=== PATIENT | female | born 1930 | race Caucasian/White ===

== ENCOUNTER 2016-08-21 16:50 | Observation (INO) | payer MEDICARE, OTHER ==
[2016-08-21 18:15] LABS: Hematocrit 35.3 % (37.0-47.0); Hemoglobin 11.5 gm/dL (12.5-16.0); Mean Cell Volume 85.9 fl (78-100); Mean Corpuscular Hgb Conc 32.6 g/dl (32-36); Mean Platelet Volume 10.6 fl (6.0-9.5); Neutrophil # 13.4 K/mm3 (1.3-6.0); Neutrophil % 81.9 % (42-75.0); Platelet Count 213 K/mm3 (150-450); Red Blood Count 4.11 M/mm3 (4.2-5.4); Red Cell Distribution Width 14.2 % (11.5-14.0); White Blood Count 16.4 K/mm3 (4.0-10.5)
--- OUTSIDE RECORDS SUMMARY | 2016-08-21 18:15 | XMS REPORT | Continuity of Care Document ---
:1930 Author Organization [facility] ([facility]) Address [address] [place] [address] Phone [phone] Care Team Providers Name Role Phone Laz Mccormack Primary Care Provider [phone] Source Comments This disclosure is being made pursuant to the Care Everywhere program, applicable federal and state laws, and may not contain all informaitonavailable regarding this patient.[facility] ([facility]) Active Allergies and Adverse Reactions No Known Allergies Current Medications Prescription Sig. Disp. Refills Start Date End Date Status ferrous sulfate (IRON) 325 Take 325 mg by Active mg (65 mg iron) tablet mouth 2 times daily. folic acid 5 mg capsule Take 5 mg by mouth Active daily. VITAMIN B COMPLEX PO Take 1 Tab by Active mouth daily. simvastatin 40 mg tablet Take 40 mg by Active mouth every evening. ramipril 5 mg capsule Take 5 mg by mouth Active daily. CALCIUM CARBONATE/VITAMIN 1 Tab daily. Active D3 (VITAMIN D-3 PO) metFORMIN (GLUMETZA) 500 Take 500 mg by Active mg XR tablet mouth daily. 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 03/26/2014 HTN (hypertension) 03/26/2014 Hyperlipidemia 03/26/2014 Obese 03/26/2014 Colon cancer 11/12/2013 Social History Tobacco Use Types Packs/Day Years Used Date Never Smoker Smokeless Tobacco: Never Used Last Filed Vital Signs Vital Sign Reading Time Taken Blood Pressure 194/86 03/31/2015 1:19 PM DE ICER FINISHER Pulse 75 03/31/2015 1:19 PM DE ICER FINISHER Temperature 35.8 C (96.4 F) 03/31/2015 1:19 PM DE ICER FINISHER Respiratory Rate 16 04/15/2014 12:46 PM DE ICER FINISHER Height 1.499 m (4' 11.02") 03/26/2014 10:53 AM DE ICER FINISHER Weight 77.656 kg (171 lb 3.2 oz) 03/31/2015 1:19 PM DE ICER FINISHER Body Mass Index 34.56 03/31/2015 1:19 PM DE ICER FINISHER Oxygen Saturation 96% 03/31/2015 1:19 PM DE ICER FINISHER Plan of Care Health Maintenance Due Date Last Done Comments Hepatitis B Vaccine (1 of 3 - Primary Series) 1930 Tdap Vaccine 1941 DIABETIC: Cholesterol 1948 Diabetic: Hdl 1948 DIABETIC: Hemoglobin A1C 1948 Diabetic: Ldl 1948 DIABETIC: Microalbumin 1948 DIABETIC: Triglycerides 1948 Td Vaccine 1948 Zoster Vaccine 1990 Pneumococcal Vaccine (1 of 2 - PCV13) 1995 DIABETIC: Foot Exam 03/26/2014 DIABETIC: Retinal Eye Exam 03/26/2014 Influenza Vaccine: Seasonal (#1) 12/01/2015 Results from Last 3 Months Not on file
--- NOTE | 2016-08-21 18:16 | ERNOTE ---
Trauma/Assault HPI - Narrative Date of Service: 08/21/16 - General Stated Complaint: FALL Time Seen by Provider: 08/21/16 17:53 Source: patient, family - Daughter Exam Limitations: no limitations, other - Taken into consideration Hx of Dementia - Immun/Allergies/Home Medications Immunizations: IMMUNIZATION HX Immunizations Up to Date Yes History of Influenza Vaccine Yes Hx Pneumococcal Vaccination No Allergies/Adverse Reactions: Allergies No Known Allergies Allergy (Verified 08/21/16 17:32) Home Medications: HOME MEDICATIONS Cyanocobalamin (Vitamin B-12) [Vitamin B-12] 2,000 mcg PO DAILY 11/30/13 [Last Taken Unknown] Ferrous Sulfate 325 mg PO BID 11/30/13 [Last Taken Unknown] Folic Acid 5 mg PO DAILY 11/30/13 [Last Taken Unknown] Simvastatin [Zocor] 40 mg PO DAILY 11/30/13 [Last Taken Unknown] Vitamin E 1,000 unit PO DAILY 11/30/13 [Last Taken Unknown] Aspirin [Aspirin Enteric Coated] 81 mg PO DAILY 08/21/16 [Last Taken Unknown] Cholecalciferol (Vitamin D3) [Vitamin D3] 1,000 unit PO DAILY 08/21/16 [Last Taken Unknown] Insulin Glargine,Hum.rec.anlog [Lantus] 30 units SQ HS 08/21/16 [Last Taken Unknown] Insulin Glargine,Hum.rec.anlog [Lantus] 35 units SQ AC 08/21/16 [Last Taken Unknown] Lisinopril [Zestril] 10 mg PO BID 08/21/16 [Last Taken Unknown] metFORMIN HCL [Metformin HCl ER] 500 mg PO BID 08/21/16 [Last Taken Unknown] - History of Present Illness Date (Duration): 08/21/16 Time (Timing): 16:30 Narrative: Patient comes after having an event of LOC. Patient had bladder sphincter loss and is complaining of L shoulder pain. Daughter reported that this has happened to patient before in two different events. Location Occurred: Reports: home Pain Location: Reports: none Method of Injury: Reports: fall Severity: mild Modifying Factors - (Improves): Reports: other - nothing Modifying Factors - (Worsens): Reports: other - nothing Loss of Consciousness: Reports: no loss of consciousness Associated Symptoms - Trauma: Reports: other - patient loss control of bladder.. Denies: headache, confusion, dizziness, lightheadedness, seizures, slurred speech, trouble walking, vision changes, neck pain, chest pain, shortness of breath, abdominal pain, nausea, vomiting, muscle spasms Review of Systems - Review of Systems Constitutional: Present: weakness, malaise. Absent: fever, chills, diaphoresis , weight loss EYE: Present: no symptoms reported ENT: Present: no symptoms reported Respiratory: Absent: shortness of breath, cough, wheezing Cardiology: Present: syncope. Absent: chest pain, palpitations, edema, claudication Gastrointestinal/Abdominal: Present: nausea. Absent: vomiting, diarrhea, constipation, abdominal pain Genitourinary: Present: no symptoms reported Musculoskeletal: Present: joint pain - L shoulder pain. Absent: back pain Skin: Present: no symptoms reported Neurological: Present: dizziness/light-headedness. Absent: seizure, pre- existing deficit Endocrine: Present: no symptoms reported Hematologic/Lymphatic: Present: no symptoms reported Psych: Present: no symptoms reported All Other Systems: All systems neg except as marked - Patient's Past Medical History Patient History - Medical: Diabetes Type 2 Insulin Dependent, Dementia Patient History - Cardiac/Respiratory: Hypertension, Hyperlipidemia Patient History - Cancer: Colon, Liver Patient History - Surgical Procedures: Cataracts, Other Patient History - Other: None - Social History Living Situations: other Abuse History: No History of abuse Psych History: No pertinent hx Smoking Status: Former smoker Have you smoked in the past 12 months: No Do you dip or chew tobacco: No - Immunizations Immunizations Up to Date: Yes Hx Pneumococcal Vaccination: No History of Influenza Vaccine: Yes Physical Exam - Physical Exam General Appearance: Present: wd/wn, alert, no apparent distress Eye Exam: Normal inspection: bilateral, PERRL: bilateral, EOMI: bilateral Ears, Nose, Throat: Present: normal ENT inspection Neck: Present: normal inspection, nontender. Absent: carotid bruit Respiratory: Present: no respiratory distress, normal breath sounds, no accessory muscle use, chest nontender, lungs clear Cardiovascular/Chest: Present: regular rate, rhythm, normal peripheral pulses, systolic murmur. Absent: JVD Gastrointestinal/Abdominal: Present: normal bowel sounds, nontender, nondistended, soft, no organomegaly Back Exam: Present: normal inspection. Absent: CVA tenderness (R), CVA tenderness (L), vertebral tenderness, decreased range of motion, muscle spasm Extremity Exam: Present: bony tenderness - Patient with pain on the L shoulder area and limited ROM. No open wounds, good pulse and good sensation Neurological Exam: Present: alert, oriented, normal mood/affect, no motor/ sensory deficits Skin Exam: Present: normal color, warm/dry Lymphatic Exam: Present: no adenopathy ED Progress - Date and Time Seen: Date and Time: 08/21/16 18:57 GCS: 15/15, NIH Stroke Scale: 0 08/21/16 19:31 Patient at the moment has recovered from syncopal event, has no gross neurologic deficit, and will be place in hospital. Patient with a L shoulder Fx. Dr. Vance has been consulted. Case has been presented to Hospitalist. 08/21/16 19:32 Patient was ordered Sling and Swat that was placed by RN. Patient with good pulse and sensation. - Results and Orders Patient's Lab Results:: I have reviewed the patient's lab results. Results and Orders: CBC: Elevated WBC CMP: WNL Trop: Negative INR: Normal UA: will be follow in the floor - Vital Signs Patient's Vital Signs:: I have reviewed the patient's vital signs. Vital Signs: Vital Signs 08/21/16 08/21/16 17:18 17:32 Pulse Rate 61 64 Respiratory 19 17 Rate Blood Pressure 192/66 192/66 O2 Sat by Pulse 95 95 Oximetry - EKG EKG: NSR, RBBB EKG read: Interp. by me EKG Comments: HR: 67, No ST Elevation - X-Ray X-Ray #1 X-Ray: chest Interpretation: Interp. by me X-ray Comments: No infiltrates. Cardiomegaly X-Ray #2 X-Ray: shoulder Interpretation: Interp. by me X-ray Comments: L side: Fx noticed, no dislocation X-Ray #3 X-Ray: humerus Interpretation: Interp. by me X-ray Comments: L side: Fx noticed on proximal head - CT/Ultrasound CT/Ultrasound Narrative: CT Head: No blood seen pending Radiologist report - Progress/Reassessment Chief Complaint: Fall Progress:: Improved - Transfer of Care Expected Disposition: Admit Plan - Plan Plan: Admission for further evaluation Departure Clinical Impression: Syncope Qualifiers: Syncope type: unspecified Qualified Code(s): R55 - Syncope and collapse Shoulder fracture, left Qualifiers: Encounter type: initial encounter Fracture type: closed Qualified Code(s): S42.92XA - Fracture of left shoulder girdle, part unspecified, initial encounter for closed fracture - Departure Disposition: [facility] Condition: Good Referrals: Laz Mccormack MD [Primary Care Provider] -
[2016-08-21 18:25] LABS: INR 1.09 INR (0.90-1.10); Partial Thrombolplastin Time 25.9 Seconds (24-32); Prothrombin Time (Patient) 11.3 Seconds (9.4-11.4)
[2016-08-21 18:32] LABS: ALT 19 U/L (19-67); AST 17 U/L (0-48); Alkaline Phosphatase * 39 U/L (50-170); Anion Gap 16.1 mmol/L (6.8-13.8); BUN/Creatinine Ratio 12.8 (9.0-21.6); Bilirubin, Total 0.5 mg/dL (0.0-1.1); Blood Urea Nitrogen 17 mg/dL (3-23); Ca. Corrected For Albumin 9.8 mg/dL (8.4-10.2); Calcium * 9.3 mg/dL (7.9-10.9); Carbon Dioxide 27.9 mmol/L (24-32.6); Chloride 101 mmol/L (97-106); Glucose * 183 mg/dL (70-110); Sodium 141 mmol/L (132-142); Total Protein 8.2 gm/dL (6.2-8.2); Troponin I Less than 0.017 ng/ml (0.00-0.10)
--- OUTSIDE RECORDS SUMMARY | 2016-08-21 19:37 | XMS REPORT | Continuity of Care Document ---
:1930 Author Organization [facility] ([facility]) Address [address] [place] [address] Phone [phone] Care Team Providers Name Role Phone Laz Mccormack Primary Care Provider [phone] Source Comments This disclosure is being made pursuant to the Care Everywhere program, applicable federal and state laws, and may not contain all informaitonavailable regarding this patient.[facility] ([facility]) Active Allergies and Adverse Reactions No [...] Taken Blood Pressure 194/86 03/31/2015 1:19 PM STATE EPIDEMIOLOGIST Pulse 75 03/31/2015 1:19 PM STATE EPIDEMIOLOGIST Temperature 35.8 C (96.4 F) 03/31/2015 1:19 PM STATE EPIDEMIOLOGIST Respiratory Rate 16 04/15/2014 12:46 PM STATE EPIDEMIOLOGIST Height 1.499 m (4' 11.02") 03/26/2014 10:53 AM STATE EPIDEMIOLOGIST Weight 77.656 kg (171 lb 3.2 oz) 03/31/2015 1:19 PM STATE EPIDEMIOLOGIST Body Mass Index 34.56 03/31/2015 1:19 PM STATE EPIDEMIOLOGIST Oxygen Saturation 96% 03/31/2015 1:19 PM STATE EPIDEMIOLOGIST Plan of Care Health Maintenance Due Date [...]
[2016-08-21 20:24] LABS: Urine Appearance Slightly Cloudy; Urine Bilirubin Negative (NEGATIVE); Urine Blood 10 /ul (NEGATIVE); Urine Color Yellow; Urine Ketone 5 mg/dL (NEGATIVE)
[2016-08-21 20:25] LABS: Urine Nitrite Negative (NEGATIVE); Urine Protein >=300 mg/dL (NEGATIVE); Urine Urobilinogen Normal (NORMAL)
[2016-08-21 20:26] LABS: Urine Bacteria 3+; Urine RBC 0-5 /hpf (0-5)
[2016-08-21] MEDS: NORMAL SALINE 1,000 ML IV PRN (21:46)
--- NOTE | 2016-08-21 22:26 | HP ---
Chief Complaint - Chief Complaint Date of Service: 08/21/16 Time of Service: 20:45 Chief Complaint: "Syncope,Fall". Source of HPI- Pt; unreliable due to Memory impairment, pt's daughter Anabel, ER provider report. History of Present Illness: Mrs. Hirsch is a 86-yr-old [facility] pt of Dr. 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 Pt has a memory deficit and therefore history is provided by the daughter Anabel (POA). Pt still lives at home and daughter is her main vat packer. She states that they were getting ready to leave for errands and while the pt was walking down the stairs, she fell to the Left side. She does not think she missed a step as the fall was sudden and "seemed as though the wind desire just blew her over." She was unresponsive, with glazed eyes/look. They tried to sit her on the chair and she vomited and was incontinent of urine and stool. The EMS was called. She vomited 2 more times and by the time EMS had arrived she had regained her consciousness and was talking. Her daughter thought the episode was related to blood sugar but it was 159, and 141 en route to the hospital. While at ED, the CT of the head did not show any acute findings. The CXR was also normal. However , the Shoulder-Xray showed she sustained a LT humerus Fracture without dislocation. She had Leukocytosis with a WBC of 16,700 and the UA showed presence of a UTI. ERP provider spoke to Ortho (Dr. Vance) and he will evaluate pt in am. The pt will need to be admitted inpatient for a minimum of 2 midnight or longer due to a UTI, Syncope, & LT Shoulder Fracture (which may require surgery), and along with her comorbidities and advanced age, her recovery could be a complicated one. - Patient's Past Medical History Patient History - Medical: Anemia, Diabetes Type 2 Insulin Dependent, Dementia Patient History - Cardiac/Respiratory: Hypertension, Hyperlipidemia Patient History - Cancer: Colon, Liver Patient History - Surgical Procedures: Cataracts, Other Patient History - Other: None LMP (females 10-50): Menopausal - Family History Mother Family History - Medical: , Diabetes Type 2 Insulin Dependent Family History - Cardiac/Respiratory: CVA/Stroke, Myocardial Infarction Father Family History - Medical: , Diabetes Type 2 Insulin Dependent - Social History Living Situations: other Abuse History: No History of abuse Psych History: No pertinent hx Smoking Status: Never smoker Have you smoked in the past 12 months: No Do you dip or chew tobacco: No Patient requests Smoking Cessation Consult: No Initiate information on Smoking Cessation: No Alcohol Use: none Drug Use: none - Immunizations Immunizations Up to Date: Yes Hx Pneumococcal Vaccination: No History of Influenza Vaccine: Yes Review Of Systems (GEN) - Review of Systems Additional Comments: ROS unobtainable due to Memory impairment. Allergies/Adverse Reactions: Allergies Allergy/AdvReac Type Severity Reaction Status Date / Time No Known Allergies Allergy Verified 08/21/16 17:32 Home Medications: HOME MEDICATIONS Cyanocobalamin (Vitamin B-12) [Vitamin B-12] 2,000 mcg PO DAILY 11/30/13 [Last Taken 08/21/16 09:00] Ferrous Sulfate 325 mg PO BID 11/30/13 [Last Taken 08/21/16 09:00] Folic Acid 5 mg PO DAILY 11/30/13 [Last Taken 08/20/16 18:00] Simvastatin [Zocor] 40 mg PO DAILY 11/30/13 [Last Taken 08/20/16 21:00] Vitamin E 1,000 unit PO DAILY 11/30/13 [Last Taken 08/20/16 18:00] Aspirin [Aspirin Enteric Coated] 81 mg PO DAILY 08/21/16 [Last Taken 08/20/16 21 :00] Cholecalciferol (Vitamin D3) [Vitamin D3] 1,000 unit PO DAILY 08/21/16 [Last Taken 08/20/16 18:00] Insulin Glargine,Hum.rec.anlog [Lantus] 30 units SQ HS 08/21/16 [Last Taken 21:00] Insulin Glargine,Hum.rec.anlog [Lantus] 35 units SQ QAM 08/21/16 [Last Taken 09:00] Lisinopril [Zestril] 10 mg PO BID 08/21/16 [Last Taken 08/21/16 09:00] metFORMIN HCL [Metformin HCl ER] 1,000 mg PO BID 08/21/16 [Last Taken 08/21/16 09:00] Exam - Exam Vital Signs: Vital Signs - Last Taken Temp 36.4 C L 08/21/16 19:35 Pulse 75 08/21/16 20:05 Resp 18 08/21/16 20:05 BP 177/63 08/21/16 20:05 Pulse Ox 94 08/21/16 20:05 Constitutional: Present: Alert, No distress, Elderly ENT Exam: Present: normal ENT inspection, hearing grossly normal. Absent: nasal drainage, pharyngeal erythema Eye Exam: bilateral eye: normal inspection, PERRL Neck: Present: full range of motion, supple, normal inspection Back Exam: Present: normal inspection, no CVA tenderness Respiratory: Present: lungs clear, no accessory muscle use, No wheezing Cardiovascular/Chest: Present: normal peripheral pulses, regular rate, rhythm, no edema, no murmur Abdomen: Present: Normal bowel sounds, soft, nontender, obese /Rectal: Present: Exam deferred Extremity: Present: no pedal edema, other - LT Shoulder swelling with limited ROM. Skin Exam: Present: normal color, warm/dry Neurologic: Present: alert, disoriented x 3. Absent: dizzy/light-headedness Appearance: Present: impaired insight, impaired recent memory, impaired remote memory Eye contact: Present: good eye contact, normal speech Thoughts: Present: no apparent hallucination Diagnostic Studies: Abnormal Lab Results 08/21/16 Range/Units 20:10 Urine Protein >=300 H (NEGATIVE) mg/dL Urine Blood 10 H (NEGATIVE) /ul Prot Sulfosalicylic Acd 4+ H (0) mg/dL Ur Leukocyte Esterase 25 H (NEGATIVE) /ul Urine WBC 5-10 H (0-5) /hpf Ur Epithelial Cells 5-10 H (0-5) /hpf Urine Bacteria 3+ H (NONE) Laboratory Results WBC 16.4 K/mm3 (4.0-10.5) H 08/21/16 18:06 RBC 4.11 M/mm3 (4.2-5.4) L 08/21/16 18:06 Hgb 11.5 gm/dL (12.5-16.0) L 08/21/16 18:06 Hct 35.3 % (37.0-47.0) L 08/21/16 18:06 MCV 85.9 fl (78-100) 08/21/16 18:06 MCH 28.0 pg (27-31) 08/21/16 18:06 MCHC 32.6 g/dl (32-36) 08/21/16 18:06 RDW 14.2 % (11.5-14.0) H 08/21/16 18:06 Plt Count 213 K/mm3 (150-450) 08/21/16 18:06 MPV 10.6 fl (6.0-9.5) H 08/21/16 18:06 Immature Gran % (Auto) 0.60 % (0.001-0.429) H 08/21/16 18:06 Immature Gran # (Auto) 0.10 K/mm3 (0.000-0.0310) H 08/21/16 18:06 Neutrophils % 81.9 % (42-75.0) H 08/21/16 18:06 Lymphocytes % 10.6 % (20-51) L 08/21/16 18:06 Monocytes % 4.8 % (0.0-9) 08/21/16 18:06 Eosinophils % 1.8 % (0.0-3.0) 08/21/16 18:06 Basophils % 0.3 % (0.0-1.0) 08/21/16 18:06 Nucleated RBC % 0.0 k/mm3 (0-1) 08/21/16 18:06 Neutrophils # 13.4 K/mm3 (1.3-6.0) H 08/21/16 18:06 Lymphocytes # 1.7 k/mm3 (1.5-3.5) 08/21/16 18:06 Monocytes # 0.8 k/mm3 (0.0-1.0) 08/21/16 18:06 Eosinophils # 0.3 k/mm3 (0.0-0.7) 08/21/16 18:06 Absolute Basophils 0.1 k/mm3 (0.0-0.1) 08/21/16 18:06 PT 11.3 Seconds (9.4-11.4) 08/21/16 18:06 INR (Anticoag Therapy) 1.09 INR (0.90-1.10) 08/21/16 18:06 PTT (Annetta) 25.9 Seconds (24-32) 08/21/16 18:06 Sodium 141 mmol/L (132-142) 08/21/16 18:06 Plasma Sodium 142 mmol/L (130-142) 08/21/16 18:06 Potassium 4.0 mmol/L (3.4-4.6) 08/21/16 18:06 Chloride 101 mmol/L (97-106) 08/21/16 18:06 Carbon Dioxide 27.9 mmol/L (24-32.6) 08/21/16 18:06 Anion Gap 16.1 mmol/L (6.8-13.8) H 08/21/16 18:06 BUN 17 mg/dL (3-23) 08/21/16 18:06 Creatinine 1.33 mg/dL (0.4-1.4) 08/21/16 18:06 Est GFR (Non-Af Amer) 40 mL/min (60-130) L D 08/21/16 18:06 BUN/Creatinine Ratio 12.8 (9.0-21.6) 08/21/16 18:06 Random Glucose 183 mg/dL (70-110) H 08/21/16 18:06 Calcium 9.3 mg/dL (7.9-10.9) 08/21/16 18:06 Calcium Adj for Albumin 9.8 mg/dL (8.4-10.2) 08/21/16 18:06 Total Bilirubin 0.5 mg/dL (0.0-1.1) 08/21/16 18:06 AST 17 U/L (0-48) 08/21/16 18:06 ALT 19 U/L (19-67) 08/21/16 18:06 Alkaline Phosphatase 39 U/L (50-170) L 08/21/16 18:06 Troponin I Less than 0.017 ng/ml (0.00-0.10) 08/21/16 18:06 Total Protein 8.2 gm/dL (6.2-8.2) 08/21/16 18:06 Albumin 3.0 gm/dl (3.4-5.0) L 08/21/16 18:06 Urine Color Yellow 08/21/16 20:10 Urine Appearance Slightly cloudy 08/21/16 20:10 Urine pH 6.0 pH (5.0-7.0) 08/21/16 20:10 Ur Specific [place] 1.030 SP.GR. (1.005-1.010) 08/21/16 20:10 Urine Protein >=300 mg/dL (NEGATIVE) H 08/21/16 20:10 Urine Glucose (UA) Negative mg/dL (NEGATIVE) 08/21/16 20:10 Urine Ketones 5 mg/dL (NEGATIVE) 08/21/16 20:10 Urine Blood 10 /ul (NEGATIVE) H 08/21/16 20:10 Urine Nitrate Negative (NEGATIVE) 08/21/16 20:10 Urine Bilirubin Negative mg/dl (NEGATIVE) 08/21/16 20:10 Prot Sulfosalicylic Acd 4+ mg/dL (0) H 08/21/16 20:10 Urine Urobilinogen Normal EU/dl (NORMAL) 08/21/16 20:10 Ur Leukocyte Esterase 25 /ul (NEGATIVE) H 08/21/16 20:10 Urine RBC 0-5 /hpf (0-5) 08/21/16 20:10 Urine WBC 5-10 /hpf (0-5) H 08/21/16 20:10 Ur Epithelial Cells 5-10 /hpf (0-5) H 08/21/16 20:10 Urine Bacteria 3+ (NONE) H 08/21/16 20:10 Urine Culture Comments Culture to follow 08/21/16 20:10 Assessment/Plan - Assessment/Plan (1) UTI (urinary tract infection) Assessment: Will cover with Rocephin for now and switch Ax when culture results. Provide IVF hydration and encourage oral hydration. CBC in am. Problem: Acute (2) Shoulder fracture, left Assessment: Ortho consulted by the ERP and Dr. Vance plans to evaluate pt tomorrow. Will provide supportive cares for now with: Immobilizing the Joint with a Sling, Pain Mgt, keep NPO incase of Surgery, IVF hydration. Problem: Acute Qualifiers: Encounter type: initial encounter Fracture type: closed Qualified Code(s) : S42.92XA - Fracture of left shoulder girdle, part unspecified, initial encounter for closed fracture (3) Syncope Assessment: EKG and Troponin does not suggest syncope has arrhythmic cause. Hgb normal and no electrolyte abnormalities. Suspect Orthostatic hypotension is the cause as pt was noted to have about 44mmHg decline on standing SBP - illness ( UTI) or volume depletion may have contributed to this. Will provide IVF hydration. Will monitor Orthostatic V.S also to see if she needs adjustments in her antihypertensive medication. Problem: Acute Qualifiers: Syncope type: unspecified Qualified Code(s): R55 - Syncope and collapse (4) Generalized weakness Assessment: Involve PT/OT, encourage early ambulation. Problem: Acute (5) Diabetes Assessment: Accu checks ACHS, continue Lantus. Hold home dose metformin and start low dose SSI. Problem: Chronic Qualifiers: Diabetes mellitus type: type 2 (6) HTN (hypertension) Assessment: Continue Lisinopril, Monitor Orthostatics B/P. Problem: Chronic Qualifiers: Hypertension type: essential hypertension Qualified Code(s): I10 - Essential (primary) hypertension
[2016-08-21] MEDS: LISINOPRIL 10 MG TABLET PO SCH (22:47)
[2016-08-21] MEDS: HYDROmorphone HCL 1 MG/ML DISP.SYRIN IV PRN (22:53)
[2016-08-22] MEDS: HYDROmorphone HCL 1 MG/ML DISP.SYRIN IV PRN ×5 (02:12→11:57)
[2016-08-22 05:54] LABS: Hematocrit 28.3 % (37.0-47.0); Hemoglobin 9.4 gm/dL (12.5-16.0); Mean Cell Volume 85.5 fl (78-100); Mean Corpuscular Hemoglobin 28.4 pg (27-31); Mean Corpuscular Hgb Conc 33.2 g/dl (32-36); Mean Platelet Volume 11.1 fl (6.0-9.5); Neutrophil # 10.4 K/mm3 (1.3-6.0); Neutrophil % 82.9 % (42-75.0); Platelet Count 170 K/mm3 (150-450); Red Blood Count 3.31 M/mm3 (4.2-5.4); Red Cell Distribution Width 14.2 % (11.5-14.0); White Blood Count 12.5 K/mm3 (4.0-10.5)
[2016-08-22 06:03] LABS: BUN/Creatinine Ratio 14.4 (9.0-21.6); Calcium * 7.9 mg/dL (7.9-10.9); Estimated Creat Clear 26.5; Potassium 3.6 mmol/L (3.4-4.6)
[2016-08-22 06:06] LABS: Anion Gap 14.3 mmol/L (6.8-13.8); Carbon Dioxide 25.3 mmol/L (24-32.6)
[2016-08-22] MEDS: INSULIN ASPART 100 UNITS/ML VIAL SC SCH ×3 (07:34→16:59)
[2016-08-22] MEDS: NORMAL SALINE 1,000 ML IV PRN (08:40)
[2016-08-22] MEDS: LISINOPRIL 10 MG TABLET PO SCH ×2 (08:42→20:25)
[2016-08-22] MEDS ORDERED: LISINOPRIL 10 MG TABLET PO SCH (09:00)
[2016-08-22] MEDS ORDERED: VITAMIN E (DL,TOCOPHERYL ACET) 400 UNITS CAPSULE PO SCH (09:00)
[2016-08-22] MEDS ORDERED: VITAMIN E 100 UNIT PO SCH (09:00)
[2016-08-22] MEDS: INSULIN GLARGINE,HUM.REC.ANLOG 100 UNITS/ML VIAL SC SCH (09:48)
[2016-08-22] MEDS: CHOLECALCIFEROL 1,000 UNIT CAPSULE PO SCH (09:48)
[2016-08-22] MEDS: ASPIRIN 81 MG TABLET.DR PO SCH (09:48)
[2016-08-22] MEDS: FERROUS SULFATE 325 MG TABLET PO SCH ×2 (09:48→20:25)
[2016-08-22] MEDS: FOLIC ACID 1 MG TABLET PO SCH (09:48)
[2016-08-22] MEDS: CYANOCOBALAMIN 1,000 MCG TABLET PO SCH (09:48)
[2016-08-22] MEDS: SIMVASTATIN 40 MG TABLET PO SCH (09:48)
[2016-08-22] MEDS: SENNOSIDES/DOCUSATE SODIUM 1 TAB TABLET PO SCH ×2 (11:46→20:25)
[2016-08-22] MEDS ORDERED: ENALAPRILAT DIHYDRATE 1.25 MG/ML VIAL IV STA (14:18)
[2016-08-22] MEDS ORDERED: HYDROmorphone HCL 1 MG/ML DISP.SYRIN IV PRN (14:25)
[2016-08-22] MEDS ORDERED: ENALAPRILAT DIHYDRATE 1.25 MG/ML VIAL IV SCH (14:30)
[2016-08-22] MEDS ORDERED: oxyCODONE HCL/ACETAMINOPHEN 1 TAB TABLET PO PRN (14:31)
[2016-08-22] MEDS: BISACODYL 5 MG TABLET.DR PO SCH (15:26)
[2016-08-22] MEDS ORDERED: ENALAPRILAT DIHYDRATE 1.25 MG/ML VIAL IV PRN (16:58)
[2016-08-22] MEDS ORDERED: oxyCODONE HCL/ACETAMINOPHEN 1 TAB TABLET PO SCH (17:00)
--- NOTE | 2016-08-22 17:36 | PN ---
Subjective - Date and Time Seen Date: 08/22/16 Time: 11:58 Subjective Narrative: pleasant, confused (chronically). daughter (POA) at bedside. c/o pain left arm/ shoulder. wants to eat. no cp, no dyspnea. Objective - Review of Systems Generalized/Overall Review: Reports: Weakness EENTM: Reports: No Symptoms Reported Respiratory: Reports: No Symptoms Reported Cardiac: Reports: Syncope Abdominal: Reports: No Symptoms Reported Genitourinary Symptoms: Reports: No Symptoms Reported Musculoskeletal Complaints: Reports: Joint Pain, Muscle Pain Neurological: Reports: Weakness Skin: Reports: No Symptoms Reported Endocrine: Reports: No Symptoms Reported - Vitals Vitals: Last Vital Signs Temp 37.2 C 08/22/16 15:02 Pulse 93 08/22/16 15:02 Resp 16 08/22/16 15:02 BP 192/76 08/22/16 15:02 Pulse Ox 94 08/22/16 15:02 - Abnormal Lab Findings Abnormal Lab Findings: Abnormal Lab Results 08/21/16 08/22/16 08/22/16 Range/Units 20:10 05:40 05:40 WBC 12.5 H D (4.0-10.5) K/mm3 RBC 3.31 L (4.2-5.4) M/mm3 Hgb 9.4 L (12.5-16.0) gm/dL Hct 28.3 L (37.0-47.0) % RDW 14.2 H (11.5-14.0) % MPV 11.1 H (6.0-9.5) fl Immature Gran # (Auto) 0.05 H (0.000-0.0310) K/mm3 Neutrophils % 82.9 H (42-75.0) % Lymphocytes % 10.9 L (20-51) % Neutrophils # 10.4 H (1.3-6.0) K/mm3 Lymphocytes # 1.4 L (1.5-3.5) k/mm3 Plasma Sodium 143 H (130-142) mmol/L Anion Gap 14.3 H (6.8-13.8) mmol/L Est GFR (Non-Af Amer) 53 L D (60-130) mL/min Random Glucose 158 H (70-110) mg/dL Urine Protein >=300 H (NEGATIVE) mg/dL Urine Blood 10 H (NEGATIVE) /ul Prot Sulfosalicylic Acd 4+ H (0) mg/dL Ur Leukocyte Esterase 25 H (NEGATIVE) /ul Urine WBC 5-10 H (0-5) /hpf Ur Epithelial Cells 5-10 H (0-5) /hpf Urine Bacteria 3+ H (NONE) - Exam Constitutional: Present: Alert, Cooperative, No distress ENT Exam: Present: hearing grossly normal Neck: Present: full range of motion, supple Breasts: Present: Exam deferred Respiratory: Present: lungs clear, normal breath sounds, no respiratory distress Cardiovascular/Chest: Present: regular rate, rhythm, extra beats Abdomen: Present: soft, nontender, nondistended /Rectal: Present: Exam deferred Extremity: Present: other - left arm tender to palpation. Absent: calf tenderness Skin Exam: Present: warm/dry, no cyanosis, pallor Assessment/Plan Plan Narrative: Closed comminuted left humeral fracture - spoke with Dr. Vance - keep in immobilizer - goal is adequate pain management - likely plan is non-surgical mgnt given pt's age and co-morbidities - Dr. Vance to see on tuesday (08/23/16) in the am. HTN urgency - SBP as high as 210. - vasotec given iv and available prn for sbp >170 - monitor pt on tele with frequent bp monitoring - continue lisinopril 10 mg bid 08/22/16 - start norvasc 2.5 mg bid 08/22/16 Generalized weakness - likely secondary to UTI - consult OT/PT - orthostatic blood pressure show drop of sbp of 40 points - currently receiving NS IV fluids at 100 ml per hour. Syncope - likely secondary to combination of UTI and orthostatic hypotension. - IV fluids running - NS at 100 ml per hour - rocephin iv to treat UTI. UTI - currently on rocephin 2 gm iv q 24 hours - preliminary culture shows no growth - await final urine culture - iv fluids running - NS at 100 ml per hour Chronic Medical Conditions - Diabetes - continue lantus insulin - sliding scale insulin as needed - Dementia (stable) - HLD (stable) - Problems/Diagnosis (1) Closed comminuted left humeral fracture Problem: Acute (2) Hypertensive urgency Problem: Acute (3) Generalized weakness Problem: Acute (4) Syncope Problem: Acute Qualifiers: Syncope type: unspecified Qualified Code(s): R55 - Syncope and collapse (5) UTI (urinary tract infection) Problem: Acute Qualifiers: Urinary tract infection type: acute cystitis Hematuria presence: with hematuria Qualified Code(s): N30.01 - Acute cystitis with hematuria (6) Diabetes Problem: Chronic Qualifiers: Diabetes mellitus type: type 2 Diabetes mellitus complication status: with unspecified complications Diabetes mellitus skilled nursing insulin use: with skilled nursing use Qualified Code(s): E11.8 - Type 2 diabetes mellitus with unspecified complications; 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
[2016-08-22] MEDS ORDERED: MAGNESIUM HYDROXIDE 30 ML UDC PO PRN (18:00)
[2016-08-22] MEDS: oxyCODONE HCL/ACETAMINOPHEN 1 TAB TABLET PO SCH ×3 (18:08→23:58)
[2016-08-22] MEDS: amLODIPine BESYLATE 5 MG TABLET PO SCH (20:26)
[2016-08-22] MEDS ORDERED: INSULIN GLARGINE,HUM.REC.ANLOG 100 UNITS/ML VIAL SC SCH (21:00)
[2016-08-23] MEDS: oxyCODONE HCL/ACETAMINOPHEN 1 TAB TABLET PO SCH ×2 (05:04→12:21)
[2016-08-23 06:05] LABS: Hematocrit 27.9 % (37.0-47.0); Hemoglobin 9.4 gm/dL (12.5-16.0); Mean Cell Volume 83.8 fl (78-100); Mean Corpuscular Hemoglobin 28.2 pg (27-31); Mean Corpuscular Hgb Conc 33.7 g/dl (32-36); Mean Platelet Volume 11.2 fl (6.0-9.5); Neutrophil # 9.3 K/mm3 (1.3-6.0); Neutrophil % 75.6 % (42-75.0); Platelet Count 174 K/mm3 (150-450); Red Blood Count 3.33 M/mm3 (4.2-5.4); Red Cell Distribution Width 14.4 % (11.5-14.0); White Blood Count 12.3 K/mm3 (4.0-10.5)
[2016-08-23 06:13] LABS: Anion Gap 10.7 mmol/L (6.8-13.8); BUN/Creatinine Ratio 14.9 (9.0-21.6); Calcium * 8.6 mg/dL (7.9-10.9); Carbon Dioxide 28.3 mmol/L (24-32.6); Estimated Creat Clear 24.2
[2016-08-23] MEDS: INSULIN ASPART 100 UNITS/ML VIAL SC SCH ×2 (07:20→11:54)
[2016-08-23] MEDS: LISINOPRIL 10 MG TABLET PO SCH (08:30)
[2016-08-23] MEDS: BISACODYL 5 MG TABLET.DR PO SCH (08:31)
[2016-08-23] MEDS: SIMVASTATIN 40 MG TABLET PO SCH (08:31)
[2016-08-23] MEDS: CYANOCOBALAMIN 1,000 MCG TABLET PO SCH (08:31)
[2016-08-23] MEDS: SENNOSIDES/DOCUSATE SODIUM 1 TAB TABLET PO SCH (08:31)
[2016-08-23] MEDS: ASPIRIN 81 MG TABLET.DR PO SCH (08:31)
[2016-08-23] MEDS: CHOLECALCIFEROL 1,000 UNIT CAPSULE PO SCH (08:31)
[2016-08-23] MEDS: FERROUS SULFATE 325 MG TABLET PO SCH (08:31)
[2016-08-23] MEDS: FOLIC ACID 1 MG TABLET PO SCH (08:32)
[2016-08-23] MEDS: amLODIPine BESYLATE 5 MG TABLET PO SCH (08:33)
[2016-08-23] MEDS: INSULIN GLARGINE,HUM.REC.ANLOG 100 UNITS/ML VIAL SC SCH (08:38)
--- NOTE | 2016-08-23 10:08 | DS ---
(1) Closed comminuted left humeral fracture Problem: Acute (2) Hypertensive urgency Problem: Acute (3) Generalized weakness Problem: Acute (4) Syncope Problem: Acute Qualifiers: Syncope type: unspecified Qualified Code(s): R55 - Syncope and collapse (5) UTI (urinary tract infection) Problem: Acute Qualifiers: Urinary tract infection type: acute cystitis Hematuria presence: with hematuria Qualified Code(s): N30.01 - Acute cystitis with hematuria (6) Diabetes Problem: Chronic Qualifiers: Diabetes mellitus type: type 2 Diabetes mellitus complication status: with unspecified complications Diabetes mellitus mcc insulin use: with mcc use Qualified Code(s): E11.8 - Type 2 diabetes mellitus with unspecified complications; 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 WBC elevated at 16.7, UA positive for UTI. xray showed left closed comminuted humeral fracture. rocephin 2 gm started iv for uti. dr rogel consulted for fracture and recommended immobilizer and non- surgical management. 08/22/16 pt experiencing HTN urgency - started on norvasc 2.5 mg bid. weakness due to both uti and orthostatic hypotension - currently on iv fluids. continue iv fluids. 08/23/16 discharge day. discharged on keflex 500 mg qid x 7 days. continue norvasc 2.5 mg bid. f/u with dr rogel in 2 weeks. continue to wear immobilizer. Procedures Performed: none Discharge Disposition: Home self care Disposition: Home self-care Condition: Undetermined Discharge Activity: Activity as tolerated, Other - left arm in immobilizer Discharge Diet: Consistent carbs Referrals: Laz Mccormack MD [Primary Care Provider] - Consultation Done:: dr. rogel (ortho) Problem Oriented Discharge Instructions to Patient/Family: Humerus Fracture Treated With Immobilization, Urinary Tract Infection, Adult, [id number], Urine Culture and Sensitivity Testing, Syncope, [id number] Additional Patient Instructions (free text): Be sure to drink enough water to prevent dehydration. A glucerna supplement will be ordered at bedtime every night. Preliminary urine culture is growing Beta hemalytic strep - Patient will be placed on Keflex 500 mg QID x 7 days - will call or follow up with patient when final urine culture is available. Pain Medications: Percocet 5/325 - 1 tab ACHS scheduled with meals/snack Left Shoulder to remain in Immobilizer - use ABD pad around strap at neck to prevent skin breakdown Hold Senna Tabs if patient has bowel movement Give Dulcolax 5 mg PO x1 if no bowel movemment in 48 hours New Medications: - Dulcolax 5 mg PO Daily (if no BM in 48 hours) - Glucerna supplement - 1 supplement at bedtime each night - Senna tabs - 2 tabs po at bedtime (hold if patient has BM) - Norvasc 2.5 mg po bid. - Percocet 5/325 - 1 tab po achs (with meal/snack - hold if pt too sleepy) - Keflex 500 mg po qid x 7 days then stop. Follow up with Dr. Rogel in 2 weeks. 09/13 at 11:[address] Mccormack in 3 weeks. 09/13 at 1:30 Prescriptions (Any new or edited meds): Bisacodyl [Dulcolax] 5 mg PO DAILY PRN #[address] tablet[address] JUAREZN Reason: Constipation Cephalexin Monohydrate [Keflex] 500 mg PO QID #28 capsule Lisinopril [Zestril] 10 mg PO BID #60 tablet Nut.tx.gluc.intoler,Lac-Fr,Soy [Glucerna] 240 ml PO DAILY@1999 #30 liquid Sennosides/Docusate Sodium [Senokot-S] 2 tab PO DAILY@1999 #60 tablet amLODIPine BESYLATE [Norvasc] 2.5 mg PO BID #60 tablet oxyCODONE HCL/ACETAMINOPHEN [Percocet 5 MG/325 MG] 1 tab PO ACHS #120 tablet Complete Home Medications List: Complete Home Medication List: Cyanocobalamin (Vitamin B-12) [Vitamin B-12] 2,000 mcg PO DAILY 11/30/13 Ferrous Sulfate 325 mg PO BID 11/30/13 Folic Acid 5 mg PO DAILY 11/30/13 Simvastatin [Zocor] 40 mg PO DAILY 11/30/13 Vitamin E 1,000 unit PO DAILY 11/30/13 Aspirin [Aspirin Enteric Coated] 81 mg PO DAILY 08/21/16 Cholecalciferol (Vitamin D3) [Vitamin D3] 1,000 unit PO DAILY 08/21/16 Insulin Glargine,Hum.rec.anlog [Lantus] 30 units SQ HS 08/21/16 Insulin Glargine,Hum.rec.anlog [Lantus] 35 units SQ QAM 08/21/16 metFORMIN HCL [Metformin HCl ER] 1,000 mg PO BID 08/21/16 Bisacodyl [Dulcolax] 5 mg PO DAILY PRN #30 tablet. 08/23/16 Cephalexin Monohydrate [Keflex] 500 mg PO QID #28 capsule 08/23/16 Lisinopril [Zestril] 10 mg PO BID #60 tablet 08/23/16 Nut.tx.gluc.intoler,Lac-Fr,Soy [Glucerna] 240 ml PO DAILY@1999 #30 liquid Sennosides/Docusate Sodium [Senokot-S] 2 tab PO DAILY@1999 #60 tablet 08/23/16 amLODIPine BESYLATE [Norvasc] 2.5 mg PO BID #60 tablet 08/23/16 oxyCODONE HCL/ACETAMINOPHEN [Percocet 5 MG/325 MG] 1 tab PO ACHS #120 tablet
[2016-08-23 11:33] VITALS: BP 181/77
--- NOTE | 2016-08-23 13:00 | CONS ---
[facility] - General Date of Service: 08/23/16 Narrative: Tessa is an 86 yo F who sustained a displaced L 3-part proximal humerus fracture after a syncopal event at home. She was admitted for syncopal workup as well as hypertension. Her hypertension has resolved and her pain is well controlled currently on oral pain medications. She is a poor historian secondary to confusion and dementia. 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 - History of Present Illness Allergies/Adverse Reactions: Allergies No Known Allergies Allergy (Verified 08/21/16 17:32) Home Medications: Home Medications Medication Instructions Recorded Last Taken Cyanocobalamin (Vitamin B-12) 2,000 mcg PO DAILY 11/30/13 08/21/16 09:00 [Vitamin B-12] Ferrous Sulfate 325 mg PO BID 11/30/13 08/21/16 09:00 Folic Acid 5 mg PO DAILY 11/30/13 08/20/16 18:00 Simvastatin [Zocor] 40 mg PO DAILY 11/30/13 08/20/16 21:00 Vitamin E 1,000 unit PO DAILY 11/30/13 08/20/16 18:00 Aspirin [Aspirin Enteric Coated] 81 mg PO DAILY 08/21/16 08/20/16 21:00 Cholecalciferol (Vitamin D3) 1,000 unit PO DAILY 08/21/16 08/20/16 18:00 [Vitamin D3] Insulin Glargine,Hum.rec.anlog 30 units SQ HS 08/21/16 08/20/16 21:00 [Lantus] Insulin Glargine,Hum.rec.anlog 35 units SQ QAM 08/21/16 08/21/16 09:00 [Lantus] metFORMIN HCL [Metformin HCl ER] 1,000 mg PO BID 08/21/16 08/21/16 09:00 - Patient's Past Medical History Patient History - Medical: Anemia, Diabetes Type 2 Insulin Dependent, Dementia Patient History - Cardiac/Respiratory: Hypertension, Hyperlipidemia Patient History - Cancer: Colon, Liver Patient History - Surgical Procedures: Cataracts, Other Patient History - Other: None LMP (females 10-50): Menopausal - Family History Mother Family History - Medical: , Diabetes Type 2 Insulin Dependent Family History - Cardiac/Respiratory: CVA/Stroke, Myocardial Infarction Father Family History - Medical: , Diabetes Type 2 Insulin Dependent - Social History Living Situations: other Abuse History: No History of abuse Psych History: No pertinent hx Smoking Status: Never smoker Have you smoked in the past 12 months: No Do you dip or chew tobacco: No Patient requests Smoking Cessation Consult: No Initiate information on Smoking Cessation: No Alcohol Use: none Drug Use: none - Immunizations Immunizations Up to Date: Yes Hx Pneumococcal Vaccination: No History of Influenza Vaccine: Yes Procedures CLOSED ENDOSCOPIC BIOPSY OF LARGE INTESTINE (12/03/13) ENDOSC POLYPECTOMY OF LG INTEST (12/03/13) Medications - Medications Current Medications: Current Medications Amlodipine Besylate (Norvasc) 2.5 mg PO BID MACK Stop: 09/21/16 21:01 Last Admin: 08/23/16 08:33 Dose: 2.5 mg Aspirin (Aspirin Enteric Coated) 81 mg PO DAILY MACK Stop: 09/21/16 09:01 Last Admin: 08/23/16 08:31 Dose: 81 mg Bisacodyl (Dulcolax) 5 mg PO DAILY MACK Stop: 09/21/16 14:46 Last Admin: 08/23/16 08:31 Dose: 5 mg Cholecalciferol (Vitamin D) 1,000 unit PO DAILY MACK Stop: 09/21/16 09:01 Last Admin: 08/23/16 08:31 Dose: 1,000 unit Cyanocobalamin (Vitamin B-12) 2,000 mcg PO DAILY MACK Stop: 09/21/16 09:01 Last Admin: 08/23/16 08:31 Dose: 2,000 mcg Ferrous Sulfate (Ferrous Sulfate) 325 mg PO BID MACK Stop: 09/21/16 09:01 Last Admin: 08/23/16 08:31 Dose: 325 mg Folic Acid (Folic Acid) 5 mg PO DAILY MACK Stop: 09/21/16 09:01 Last Admin: 08/23/16 08:32 Dose: 5 mg Sodium Chloride (Sodium Chloride 0.9%) 1,000 mls @ 100 mls/hr IV .Q10H PRN PRN Reason: HYDRATION Stop: 09/20/16 20:49 Last Infusion: 08/22/16 18:40 Dose: Infused Ceftriaxone Sodium 1,000 mg/ (Dextrose/Water) 100 mls @ 200 mls/hr IV Q24H MACK PRN Reason: Protocol Stop: 09/21/16 22:31 Last Infusion: 08/22/16 23:36 Dose: Infused Insulin Aspart (Novolog) 0 units SC ACINS [facility] PRN Reason: Protocol Stop: 09/21/16 17:01 Last Admin: 08/23/16 11:54 Dose: 3 units Insulin Glargine (Lantus) 30 units SC HS [facility] Stop: 09/21/16 21:01 Last Admin: 08/22/16 20:38 Dose: 30 units Insulin Glargine (Lantus) 35 units SC QAM [facility] Stop: 09/21/16 09:01 Last Admin: 08/23/16 08:38 Dose: 35 units Lisinopril (Zestril) 10 mg PO BID [facility] Stop: 09/21/16 21:01 Last Admin: 08/23/16 08:30 Dose: 10 mg Oxycodone/Acetaminophen (Percocet 5 Mg/325 Mg) 1 tab PO Q6H [facility] Stop: 09/21/16 18:01 Last Admin: 08/23/16 12:21 Dose: 1 tab Senna/Docusate Sodium (Senokot-S) 2 tab PO BID [facility] Stop: 09/21/16 12:01 Last Admin: 08/23/16 08:31 Dose: 2 tab Simvastatin (Zocor) 40 mg PO DAILY [facility] Stop: 09/21/16 09:01 Last Admin: 08/23/16 08:31 Dose: 40 mg Physical Examination - Exam Narrative: Gen: alert, confused, unable to answer questions appropriately Resp: breathing non-labored on RA MSK: LUE in shoulder immobilizer, diffuse tenderness about shoulder, pain with any ROM of shoulder, full motor function in AIN/PIN/ulnar nerve distributions, SILT, distal cap refill brisk Radiology: Plain films reviewed which demonstrate a displaced 3 part proximal humerus fracture with appropriate reduction of the humeral head, significant varus angulation, displacement of greater tuberosity Vital Signs: Vital Signs - Last Taken Temp 36.4 C L 08/23/16 11:32 Pulse 90 08/23/16 11:32 Resp 18 08/23/16 11:32 BP 181/77 08/23/16 11:32 Pulse Ox 98 08/23/16 11:32 O2 Oxygen Delivery Method Room Air - Results and Findings: Narrative: 86 yo F w/ displaced left 3-part proximal humerus fracture following syncopal event. - discussed treatment options with the patient's daughter. Given the patient's age, dementia, and activity level, I think she would be a poor operative candidate. I recommend treating this non-operatively with a shoulder immobilizer and pain control followed by gradual PT for ROM and strengthening. Her daughter agrees with this. - NWB L shoulder, immobilizer at all times except for hygeine, getting dressed, and elbow/wrist/hand ROM. - f/u in 2 weeks in Orthopedic clinic for repeat evaluation and plan to start gentle PT at that time Lab/Microbiology results last 24 hrs: Abnormal/Pending Laboratory Last 24 HRS 08/23/16 08/23/16 05:40 05:40 WBC 12.3 H RBC 3.33 L Hgb 9.4 L Hct 27.9 L RDW 14.4 H MPV 11.2 H Immature Gran % (Auto) 0.60 H Immature Gran # (Auto) 0.07 H Neutrophils % 75.6 H Lymphocytes % 13.1 L Monocytes % 10.0 H Neutrophils # 9.3 H Monocytes # 1.2 H Est GFR (Non-Af Amer) 48 L Random Glucose 209 H D Culture 08/21/16 20:15 Urine Culture - Preliminary Urine,Clean Catch Beta Hemolytic Strep 08/21/16 21:05 Blood Culture - Preliminary Blood NO GROWTH 24 HOURS - Assessments/Findings (1) Closed comminuted left humeral fracture Problem: Acute
== END 2016-08-23 16:40 | disposition home or self-care (01) ==
LOC: ER 16:50 → MS 19:34
PROVIDERS: ADMIT Nurse Practitioner; ATTEND Internal Medicine
DX: S42.232A 3-part fracture of surgical neck of left humerus, initial encounter for closed fracture (principal); W18.39XA Other fall on same level, initial encounter; Z91.81 History of falling; Y92.018 Other place in single-family (private) house as the place of occurrence of the external cause; E11.9 Type 2 diabetes mellitus without complications; Z79.4 Long term (current) use of insulin; F03.90 Unspecified dementia, unspecified severity, without behavioral disturbance, psychotic disturbance, mood disturbance, and anxiety; I10 Essential (primary) hypertension; E78.5 Hyperlipidemia, unspecified
CPT/HCPCS: 36415; 70450; 71010; 73030; 73060; 80048; 80053; 81001; 84484; 85025; 85610; 85730; 87040; 87086; 93005; 96365; 96372; 96375; 96376; 97162; 97165; 99284; G0378; G8978; G8979; G8980; G8987; G8988; G8989

== ENCOUNTER 2017-01-12 16:56 | Observation (INO) | payer MEDICARE, OTHER ==
[2017-01-12 17:39] LABS: Hematocrit 33.4 % (37.0-47.0); Hemoglobin 11.1 gm/dL (12.5-16.0); Mean Cell Volume 82.3 fl (78-100); Mean Corpuscular Hemoglobin 27.3 pg (27-31); Mean Corpuscular Hgb Conc 33.2 g/dl (32-36); Mean Platelet Volume 10.5 fl (6.0-9.5); Neutrophil # 12.1 K/mm3 (1.3-6.0); Neutrophil % 83.8 % (42-75.0); Platelet Count 249 K/mm3 (150-450); Red Blood Count 4.06 M/mm3 (4.2-5.4); Red Cell Distribution Width 15.2 % (11.5-14.0); White Blood Count 14.4 K/mm3 (4.0-10.5)
[2017-01-12 17:46] LABS: Urine Bilirubin Negative (NEGATIVE); Urine Blood Negative /ul (NEGATIVE); Urine Ketone Negative (NEGATIVE); Urine Nitrite Negative (NEGATIVE); Urine Protein >=300 mg/dL (NEGATIVE); Urine Specific Gravity 1.025 SP.GR. (1.005-1.010); Urine Urobilinogen Normal (NORMAL)
[2017-01-12 17:55] LABS: Urine Appearance Clear; Urine Bacteria TRACE; Urine Color Yellow; Urine RBC None Seen /hpf (0-5); Urine WBC None Seen /hpf (0-5)
[2017-01-12 18:13] LABS: Anion Gap 19.1 mmol/L (6.8-13.8); BUN/Creatinine Ratio 16.7 (9.0-21.6); Bilirubin, Total 0.4 mg/dL (0.0-1.1); Ca. Corrected For Albumin 9.8 mg/dL (8.4-10.2); Calcium * 9.3 mg/dL (7.9-10.9); Carbon Dioxide 24.6 mmol/L (24-32.6); Magnesium 1.3 mg/dL (1.2-2.8); Phosphorus 3.9 mg/dL (2.2-4.2); Potassium 4.7 mmol/L (3.4-4.6); TSH * 8.75 uIU/mL (0.358-3.74); Total Protein 7.9 gm/dL (6.2-8.2)
[2017-01-12 18:24] LABS: Amylase * 96 U/L (25-115); Lipase 158 U/L (73-393)
[2017-01-12] MEDS ORDERED: NORMAL SALINE 1,000 ML IV ONE (18:33)
[2017-01-12] MEDS ORDERED: hydrALAZINE HCL 20 MG/ML VIAL IV ONE ×2 (18:33→20:09)
--- NOTE | 2017-01-12 19:01 | ERNOTE ---
Neuro HPI ER Record Date of Service: 01/12/17 Presenting Symptoms: other - syncope Time Seen by Provider: 01/12/17 17:11 Source: patient Exam Limitations: no limitations Immunizations: IMMUNIZATION HX Immunizations Up to Date Yes History of Influenza Vaccine Yes Hx Pneumococcal Vaccination Yes Allergies/Adverse Reactions: Allergies Allergy/AdvReac Type Severity Reaction Status Date / Time No Known Allergies Allergy Verified 01/12/17 17:18 Home Medications: HOME MEDICATIONS Ferrous Sulfate 325 mg PO BID 11/30/13 [Last Taken 08/21/16 09:00] Simvastatin [Zocor] 40 mg PO DAILY 11/30/13 [Last Taken 08/20/16 21:00] Aspirin [Aspirin Enteric Coated] 81 mg PO DAILY 08/21/16 [Last Taken 08/20/16 21 :00] Cholecalciferol (Vitamin D3) [Vitamin D3] 1,000 unit PO DAILY 08/21/16 [Last Taken 08/20/16 18:00] Insulin Glargine,Hum.rec.anlog [Lantus] 25 units SQ HS 08/21/16 [Last Taken 21:00] Insulin Glargine,Hum.rec.anlog [Lantus] 35 units SQ QAM 08/21/16 [Last Taken 09:00] metFORMIN HCL [Metformin HCl ER] 1,000 mg PO BID 08/21/16 [Last Taken 08/21/16 09:00] Nut.tx.gluc.intoler,Lac-Fr,Soy [Glucerna] 240 ml PO DAILY@1999 #30 liquid [Last Taken Unknown] Lisinopril [Zestril] 20 mg PO BID 01/12/17 [Last Taken Unknown] Multivit,Calc,Mins/Folic Acid [Ultra Freeda Tablet] 267 mcg PO DAILY 01/12/17 [ Last Taken Unknown] Sennosides/Docusate Sodium [Senokot-S] 2 tab PO DAILY@1999 PRN 01/12/17 [Last Taken Unknown] - History of Present Illness Narrative: Pt. comes in with c/o loss of consciousness for 30 seconds followed by incontinence of stool and vomiting x 3. Pt. daughter denies any recent illness , fever, SOB, nausea, cough, or other symptoms. Pt. has had this happen before and was not treated as pt. has a hx of untreated colon cancer with mets to the liver and a fractured L humerus that is chronic from the last time that she had a syncopal episode. Review of Systems - Review of Systems Constitutional: Present: no symptoms reported. Absent: recent illness, fever, chills, weakness, fatigue, malaise EYE: Present: no symptoms reported ENT: Present: no symptoms reported Respiratory: Present: no symptoms reported. Absent: shortness of breath, cough , wheezing Cardiology: Present: no symptoms reported. Absent: chest pain, palpitations, edema Gastrointestinal/Abdominal: Present: no symptoms reported Genitourinary: Present: no symptoms reported Musculoskeletal: Present: no symptoms reported. Absent: back pain, joint pain Skin: Present: no symptoms reported Neurological: Present: other - syncope. Absent: headache, dizziness/light- headedness, numbness, tingling All Other Systems: All systems neg except as marked - Patient's Past Medical History Patient History - Medical: Anemia, Diabetes Type 2 Insulin Dependent, Dementia Patient History - Cardiac/Respiratory: Hypertension, Hyperlipidemia Patient History - Cancer: Colon, Liver Patient History - Surgical Procedures: Cataracts, Other - bowel resection Patient History - Other: None - Family History Mother Family History - Medical: , Diabetes Type 2 Insulin Dependent Family History - Cardiac/Respiratory: CVA/Stroke, Myocardial Infarction Father Family History - Medical: , Diabetes Type 2 Insulin Dependent - Social History Living Situations: home Abuse History: No History of abuse Psych History: No pertinent hx Smoking Status: Never smoker Alcohol Use: none Drug Use: none - Immunizations Immunizations Up to Date: Yes Hx Pneumococcal Vaccination: Yes History of Influenza Vaccine: Yes Physical Exam - Physical Exam General Appearance: Present: wd/wn, alert, no apparent distress Head Exam: Present: normal inspection, no evidence of injury Eye Exam: Normal inspection: bilateral, PERRL: bilateral, EOMI: bilateral Ears, Nose, Throat: Present: normal ENT inspection, normal pharynx Neck: Present: normal inspection, nontender. Absent: lymphadenopathy (R), lymphadenopathy (L) Respiratory: Present: no respiratory distress, normal breath sounds, no accessory muscle use, chest nontender, lungs clear Cardiovascular/Chest: Present: regular rate, rhythm, no murmur, normal peripheral pulses Gastrointestinal/Abdominal: Present: no organomegaly, tenderness - BLQ, abnormal bowel sounds - hyper tympanic, distended Back Exam: Present: normal inspection, normal range of motion, no CVA tenderness , no vertebral tenderness Extremity Exam: Present: normal inspection, non-tender, normal range of motion, no edema Neurological Exam: Present: alert, normal mood/affect, disoriented to time, disoriented to place, disoriented to situation, other - unable to lift L arm against gravity Skin Exam: Present: warm/dry, pallor ED Progress - Date and Time Seen: Date and Time: 01/12/17 20:16 Discussed with Julee and she accepts pt. with hypertensive urgency and pneumonia complicating her already known metastatic colon ca. - Results and Orders Patient's Lab Results:: I have reviewed the patient's lab results. - Vital Signs Patient's Vital Signs:: I have reviewed the patient's vital signs. Vital Signs: Vital Signs 01/12/17 01/12/17 17:10 17:42 Temperature 36.4 C L Pulse Rate 80 77 Respiratory 21 H Rate Blood Pressure 188/74 O2 Sat by Pulse 93 Oximetry - X-Ray X-Ray #1 X-Ray: chest Interpretation: Reviewed by me X-ray Comments: FINDINGS: Lungs: Low lung volumes. Bilateral perihilar and bibasilar heterogeneous opacities greater on the right. Vascular indistinctness. Pleura: No pleural effusion or pneumothorax. Heart and Mediastinum: The cardiomediastinal silhouette is stable. Tortuous atherosclerotic thoracic aorta. Skeletal Structures and Soft Tissues: Redemonstration of the fracture of the proximal left humerus. No acute osseous abnormality. IMPRESSION: Right greater than left bilateral perihilar and bibasilar heterogeneous opacities which may relate to infection and/or pulmonary edema. Follow-up PA and lateral chest radiographs are recommended in 6 -8 weeks following the initiation of treatment to ensure complete resolution and exclude the possibility of underlying neoplasm. X-Ray #2 X-Ray: abdomen Interpretation: Reviewed by me X-ray Comments: non-obstructive bowel gas pattern - CT/Ultrasound CT/Ultrasound Narrative: Head CT with no acute changes but with old lacunar infarct that was not seen on head CT from july of 2016. - Progress/Reassessment Chief Complaint: Loss of Consciousness Departure Clinical Impression: Hypertensive urgency, Metastatic colon cancer to liver Syncope Qualifiers: Syncope type: unspecified Qualified Code(s): R55 - Syncope and collapse Pneumonia Qualifiers: Pneumonia type: due to unspecified organism Laterality: right Lung location: middle lobe of lung Qualified Code(s): J18.1 - Lobar pneumonia, unspecified organism - Departure Disposition: [facility] Condition: Serious
[2017-01-12] MEDS ORDERED: hydrALAZINE HCL 20 MG/ML VIAL ONE ×2 (19:04→20:26)
--- NOTE | 2017-01-13 00:37 | HP ---
Chief Complaint - Chief Complaint Date of Service: 01/12/17 Time of Service: 23:00 Chief Complaint: near syncope History of Present Illness: 86 years old female adm to the hospital with reports of syncopal episode whenever she moves and attempts to stand.per daughter pt has been having increased episodes of syncope.Today this episode was much severe associated s/ s nausea, vomiting x3, diarrhea and dizziness. s/s self resolved before coming to the hospital. PMH significant for colon cancer with mets to the liver since 2013, (family had opt for no intervention0, diabetes, hypertension, hyperlipidemia, left shoulder fracture ( No intervention) and dementia. In ER BP 220/90 she had dose of hydralazine. CXR: Right > than left bilateral perihilar and bibasilar heterogeneous opacities which may relate to infection or pulmonary edema. WBC 14.1, afebrile, urinalysis noted. X-ray ABD non obstructive bowel gas pattern. CT head: no acute intra-cranial process. 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 Pt is currenlty at her baseline per family. Family requesting to have only symptom management for syncope. she had discussed hospice with PCP and considering option. Plan of care discussed with pt daughter (POA) she verbalized understanding and agrees. - Patient's Past Medical History Patient History - Medical: Anemia, Diabetes Type 2 Insulin Dependent, Dementia, Other - dementia Patient History - Cardiac/Respiratory: Hypertension, Hyperlipidemia Patient History - Cancer: Colon, Liver, Metastatic Patient History - Surgical Procedures: Cataracts, Other - bowel resection Patient History - Other: None LMP (females 10-50): Menopausal - Family History Mother Family History - Medical: , Diabetes Type 2 Insulin Dependent Family History - Cardiac/Respiratory: CVA/Stroke, Myocardial Infarction Father Family History - Medical: , Diabetes Type 2 Insulin Dependent - Social History Living Situations: home Abuse History: No History of abuse Psych History: No pertinent hx Smoking Status: Never smoker Have you smoked in the past 12 months: No Do you dip or chew tobacco: No Alcohol Use: none Drug Use: none - Immunizations Immunizations Up to Date: Yes Hx Pneumococcal Vaccination: Yes History of Influenza Vaccine: Yes Review Of Systems (GEN) - Review of Systems Generalized/Overall Review: Present: Weakness EENTM: Present: No Symptoms Reported Respiratory: Present: No Symptoms Reported Cardiac: Present: No Symptoms Reported Abdominal: Present: No Symptoms Reported Genitourinary: Present: Urgency, Frequency, Retention Musculoskeletal: Present: No Symptoms Reported Neurological: Present: No Symptoms Reported Skin: Present: No Symptoms Reported Endocrine: Present: No Symptoms Reported Immunizations: IMMUNIZATION HX Immunizations Up to Date Yes History of Influenza Vaccine Yes Hx Pneumococcal Vaccination Yes Allergies/Adverse Reactions: Allergies Allergy/AdvReac Type Severity Reaction Status Date / Time No Known Allergies Allergy Verified 01/12/17 17:18 Home Medications: HOME MEDICATIONS Ferrous Sulfate 325 mg PO BID 11/30/13 [Last Taken 08/21/16 09:00] Simvastatin [Zocor] 40 mg PO DAILY 11/30/13 [Last Taken 08/20/16 21:00] Aspirin [Aspirin Enteric Coated] 81 mg PO DAILY 08/21/16 [Last Taken 08/20/16 21 :00] Cholecalciferol (Vitamin D3) [Vitamin D3] 1,000 unit PO DAILY 08/21/16 [Last Taken 08/20/16 18:00] Insulin Glargine,Hum.rec.anlog [Lantus] 25 units SQ HS 08/21/16 [Last Taken 21:00] Insulin Glargine,Hum.rec.anlog [Lantus] 35 units SQ QAM 08/21/16 [Last Taken 09:00] metFORMIN HCL [Metformin HCl ER] 1,000 mg PO BID 08/21/16 [Last Taken 08/21/16 09:00] Nut.tx.gluc.intoler,Lac-Fr,Soy [Glucerna] 240 ml PO DAILY@1999 #30 liquid [Last Taken Unknown] Lisinopril [Zestril] 20 mg PO BID 01/12/17 [Last Taken Unknown] Multivit,Calc,Mins/Folic Acid [Ultra Freeda Tablet] 267 mcg PO DAILY 01/12/17 [ Last Taken Unknown] Sennosides/Docusate Sodium [Senokot-S] 2 tab PO DAILY@1999 PRN 01/12/17 [Last Taken Unknown] Exam - Exam Vital Signs: Vital Signs - Last Taken Temp 36.6 C 01/12/17 21:10 Pulse 98 01/12/17 21:10 Resp 20 01/12/17 21:10 BP 234/93 01/12/17 21:10 Pulse Ox 96 01/12/17 21:10 Constitutional: Present: Alert, Cooperative, No distress ENT Exam: Present: hearing grossly normal Neck: Present: full range of motion Back Exam: Present: normal inspection, muscle spasm Respiratory: Present: chest non-tender, no respiratory distress, decreased breath sounds Cardiovascular/Chest: Present: normal peripheral pulses, regular rate, rhythm, no chest tenderness Peripheral Pulses: dorsalis-pedis (R): 3+, dorsalis-pedis (L): 3+ Abdomen: Present: Normal bowel sounds, nontender, nondistended, no rebound tenderness /Rectal: Present: Exam deferred Extremity: Present: normal range of motion, non-tender, normal inspection Skin Exam: Present: warm/dry Lymphatic: Present: no adenopathy Neurologic: Present: alert, normal mood/affect, abnormal gait Appearance: Present: impaired recent memory, impaired remote memory Eye contact: Present: cooperative Thoughts: Present: no apparent hallucination Diagnostic Studies: Laboratory Results WBC 14.4 K/mm3 (4.0-10.5) H 01/12/17 17:35 RBC 4.06 M/mm3 (4.2-5.4) L 01/12/17 17:35 Hgb 11.1 gm/dL (12.5-16.0) L 01/12/17 17:35 Hct 33.4 % (37.0-47.0) L 01/12/17 17:35 MCV 82.3 fl (78-100) 01/12/17 17:35 MCH 27.3 pg (27-31) 01/12/17 17:35 MCHC 33.2 g/dl (32-36) 01/12/17 17:35 RDW 15.2 % (11.5-14.0) H 01/12/17 17:35 Plt Count 249 K/mm3 (150-450) 01/12/17 17:35 MPV 10.5 fl (6.0-9.5) H 01/12/17 17:35 Immature Gran % (Auto) 0.60 % (0.001-0.429) H 01/12/17 17:35 Immature Gran # (Auto) 0.09 K/mm3 (0.000-0.0310) H 01/12/17 17:35 Neutrophils % 83.8 % (42-75.0) H 01/12/17 17:35 Lymphocytes % 8.1 % (20-51) L 01/12/17 17:35 Monocytes % 4.8 % (0.0-9) 01/12/17 17:35 Eosinophils % 2.3 % (0.0-3.0) 01/12/17 17:35 Basophils % 0.4 % (0.0-1.0) 01/12/17 17:35 Nucleated RBC % 0.0 k/mm3 (0-1) 01/12/17 17:35 Neutrophils # 12.1 K/mm3 (1.3-6.0) H 01/12/17 17:35 Lymphocytes # 1.2 k/mm3 (1.5-3.5) L 01/12/17 17:35 Monocytes # 0.7 k/mm3 (0.0-1.0) 01/12/17 17:35 Eosinophils # 0.3 k/mm3 (0.0-0.7) 01/12/17 17:35 Absolute Basophils 0.1 k/mm3 (0.0-0.1) 01/12/17 17:35 Sodium 138 mmol/L (132-142) 01/12/17 17:35 Plasma Sodium 140 mmol/L (130-142) 01/12/17 17:35 Potassium 4.7 mmol/L (3.4-4.6) H 01/12/17 17:35 Chloride 99 mmol/L (97-106) 01/12/17 17:35 Carbon Dioxide 24.6 mmol/L (24-32.6) 01/12/17 17:35 Anion Gap 19.1 mmol/L (6.8-13.8) H 01/12/17 17:35 BUN 22 mg/dL (3-23) 01/12/17 17:35 Creatinine 1.32 mg/dL (0.4-1.4) 01/12/17 17:35 Est GFR (Non-Af Amer) 41 mL/min (60-130) L 01/12/17 17:35 BUN/Creatinine Ratio 16.7 (9.0-21.6) 01/12/17 17:35 Random Glucose 203 mg/dL (70-110) H 01/12/17 17:35 Calcium 9.3 mg/dL (7.9-10.9) 01/12/17 17:35 Calcium Adj for Albumin 9.8 mg/dL (8.4-10.2) 01/12/17 17:35 Phosphorus 3.9 mg/dL (2.2-4.2) 01/12/17 17:35 Magnesium 1.3 mg/dL (1.2-2.8) 01/12/17 17:35 Total Bilirubin 0.4 mg/dL (0.0-1.1) 01/12/17 17:35 AST 25 U/L (0-48) 01/12/17 17:35 ALT 19 U/L (19-67) 01/12/17 17:35 Alkaline Phosphatase 53 U/L (50-170) 01/12/17 17:35 Troponin I 0.022 ng/ml (0.00-0.10) 01/12/17 17:35 Total Protein 7.9 gm/dL (6.2-8.2) 01/12/17 17:35 Albumin 3.0 gm/dl (3.4-5.0) L 01/12/17 17:35 Amylase 96 U/L (25-115) 01/12/17 17:35 Lipase 158 U/L (73-393) 01/12/17 17:35 TSH 8.750 uIU/mL (0.358-3.74) H 01/12/17 17:35 Urine Color Yellow 01/12/17 17:21 Urine Appearance Clear 01/12/17 17:21 Urine pH 6.0 pH (5.0-7.0) 01/12/17 17:21 Ur Specific Momence 1.025 SP.GR. (1.005-1.010) 01/12/17 17:21 Urine Protein >=300 mg/dL (NEGATIVE) H 01/12/17 17:21 Urine Glucose (UA) Negative mg/dL (NEGATIVE) 01/12/17 17:21 Urine Ketones Negative mg/dL (NEGATIVE) 01/12/17 17:21 Urine Blood Negative /ul (NEGATIVE) 01/12/17 17:21 Urine Nitrate Negative (NEGATIVE) 01/12/17 17:21 Urine Bilirubin Negative mg/dl (NEGATIVE) 01/12/17 17:21 Prot Sulfosalicylic Acd 4+ mg/dL (0) H 01/12/17 17:21 Urine Urobilinogen Normal EU/dl (NORMAL) 01/12/17 17:21 Ur Leukocyte Esterase Negative /ul (NEGATIVE) 01/12/17 17:21 Urine RBC None seen /hpf (0-5) 01/12/17 17:21 Urine WBC None seen /hpf (0-5) 01/12/17 17:21 Ur Epithelial Cells None seen /hpf (0-5) 01/12/17 17:21 Urine Bacteria Trace (NONE) 01/12/17 17:21 Urine Culture Comments Culture to follow 01/12/17 17:21 Assessment/Plan - Narrative Narrative: Syncope- probable due to mets and possibility mets to brain vs vasovagal pt and family had refused to have cancer treatment since 2013 Her syncope have been more frequent and debilitating Safety while hospitalized. Colon cancer with mets to liver No intervention Family had discussed hospice with PCP and need time to consider options. Left Humeral fracture No surgical interventions Pt getting Physical therapy Diabetes consistent carb diet Accu-check AC+HS and sliding scale insulin Resume home dose of medications Hypertensive urgency In ER BP 220/90--->234/93 Hydralazine given, continue to monitor vital signs Urinary retention pt report frequent voids every 2-5 minutes Bladder scan post void >700ml Insert Curiel cath and provide correct I/O On adm WBC 14.1, afebrile, urinalysis noted. No UTI will obtain procalcitonin and determine if to start antbx Dementia- per family pt is currently at her baseline. Code status: DNR DVT PPX: SCD and ambulate GI ppx: protonix Time 50 minutes - Assessment/Plan (1) Hypertensive urgency Problem: Acute (2) Metastatic colon cancer to liver Problem: Chronic (3) Syncope Problem: Chronic Qualifiers: Syncope type: unspecified Qualified Code(s): R55 - Syncope and collapse (4) Closed comminuted left humeral fracture Problem: Chronic (5) Diabetes Problem: Chronic Qualifiers: (6) Dementia Problem: Acute
[2017-01-13] MEDS: hydrALAZINE HCL 20 MG/ML VIAL IV PRN ×2 (03:21→11:17)
[2017-01-13 06:37] LABS: Anion Gap 14.5 mmol/L (6.8-13.8); BUN/Creatinine Ratio 18.8 (9.0-21.6); Calcium * 9.2 mg/dL (7.9-10.9); Carbon Dioxide 25.5 mmol/L (24-32.6); Estimated Creat Clear 28.7; TSH * 2.548 uIU/mL (0.358-3.74)
[2017-01-13] MEDS ORDERED: LISINOPRIL 20 MG TABLET PO SCH (09:00)
[2017-01-13] MEDS ORDERED: CHOLECALCIFEROL 1,000 UNIT CAPSULE PO SCH (09:00)
[2017-01-13] MEDS ORDERED: MULTIVIT-MIN/FA/LYCOPEN/LUTEIN 1 TAB TABLET PO SCH (09:00)
[2017-01-13] MEDS ORDERED: ASPIRIN 81 MG TABLET.DR PO SCH (09:00)
[2017-01-13] MEDS ORDERED: INSULIN GLARGINE,HUM.REC.ANLOG 100 UNITS/ML VIAL SC SCH ×2 (09:00→21:00)
[2017-01-13] MEDS ORDERED: FAMOTIDINE 20 MG TABLET PO SCH (09:00)
[2017-01-13] MEDS ORDERED: FERROUS SULFATE 325 MG TABLET PO SCH (09:00)
[2017-01-13] MEDS ORDERED: LISINOPRIL 10 MG TABLET PO SCH ×2 (09:00)
--- NOTE | 2017-01-13 10:29 | DS ---
(1) Syncope Problem: Acute Qualifiers: Syncope type: unspecified Qualified Code(s): R55 - Syncope and collapse (2) Hypertensive urgency Problem: Acute (3) Metastatic colon cancer to liver Diagnosis(s): NO RX ;cat scan - liver mets in 2013. Problem: Chronic (4) Dementia Problem: Chronic Qualifiers: Dementia type: vascular dementia Description of Stay: DATE OF ADMISSION: 01/12/2017. DATE OF DISCHARGE: 01/13/2017. DIAGNOSTICS: CT HEAD W/O 01/12/2017. DISCHARGE SUMMARY: Tessa Hirsch is a 86-year-old WF with a history of HTN, T2 DM, HLD, dementia, colon cancer with metastases, recent LT shoulder fracture who was brought to the ER for a recent syncopal episode. She was found on the floor at home by her daughter with LOC for 30 seconds and was incontinent of urine/stool. Also vomited 3. BP in ER 220/90. Patient was treated with hydralazine IV with improvement in BP. She underwent a head CT W/O which showed mild cerebral volume loss, mild chronic small vessel ischemic disease, probable old lacunar infarct in the LT thalamus and no acute pathology. CXR showed RT> LT bilateral perihilar/bibasilar heterogeneous opacities which may relate to infection/pulmonary edema. Follow-up PA and lateral CXR are recommended in 6-8 weeks following the initiation of treatment to ensure complete resolution and exclude the possibility of underlying neoplasm. Daughter is unsure that the patient is taking her medications as she tends to pocket her pills and spit them out. She is considering hospice as currently no treatment is being done for colon cancer/dementia etc. Try minimizing medications and discontinuing simvastatin. Patient discharged in a stable condition with possible hospice. Procedures Performed: none Discharge Disposition: Home self care Disposition: Hospice-regardless hospital Condition: Poor Discharge Activity: Activity as tolerated Discharge Diet: Consistent carbs, Low salt Problem Oriented Discharge Instructions to Patient/Family: Hypertension, Easy- to-Read Additional Patient Instructions (free text): MEDICATIONS DC'D/CHANGED: 1. Metformin ER 500 mg 2 tabs PO BID decreased to 1 tab PO BID with meals. 2. ASA 81 mg stopped. 3. Simvastatin 40 mg stopped. NEW MEDICATIONS: None. Patient is in hospice. Glucerna at bedtime. Please make sure patient gets lisinopril twice a day; documented BP at least 3 times a week. Call physician in one week. Prescriptions (Any new or edited meds): metFORMIN HCL [Metformin HCl ER] 500 mg PO BID #0.1 [id number] Complete Home Medications List: Complete Home Medication List: Cholecalciferol (Vitamin D3) [Vitamin D3] 1,000 unit PO DAILY 08/21/16 Insulin Glargine,Hum.rec.anlog [Lantus] 25 units SQ HS 08/21/16 Insulin Glargine,Hum.rec.anlog [Lantus] 35 units SQ QAM 08/21/16 Nut.tx.gluc.intoler,Lac-Fr,Soy [Glucerna] 240 ml PO DAILY@1999 #30 liquid Lisinopril [Zestril] 10 mg PO BID 01/12/17 Multivit,Calc,Mins/Folic Acid [Ultra Freeda Tablet] 267 mcg PO DAILY 01/12/17 Sennosides/Docusate Sodium [Senokot-S] 2 tab PO DAILY@1999 PRN 01/12/17 metFORMIN HCL [Metformin HCl ER] 500 mg PO BID #0.1 [id number] 01/13/17
[2017-01-13 13:59] VITALS: BP 160/65
[2017-01-13] MEDS ORDERED: [UNRECOGNIZED DRUG - OTHER] PO SCH (20:00)
[2017-01-13] MEDS ORDERED: SENNOSIDES/DOCUSATE SODIUM 1 TAB TABLET PO PRN (20:00)
[2017-01-13] MEDS ORDERED: SIMVASTATIN 40 MG TABLET PO SCH (21:00)
== END 2017-01-13 13:30 | disposition hospice, home (50) ==
LOC: ER 16:56 → MS 20:35
PROVIDERS: ADMIT Nurse Practitioner; ATTEND Internal Medicine
PROC: 0T9B70Z Drainage of Bladder with Drainage Device, Via Natural or Artificial Opening (ICD-10-PCS; principal; 2017-01-13)
DX: R55 Syncope and collapse (principal); I16.0 Hypertensive urgency; I10 Essential (primary) hypertension; E11.9 Type 2 diabetes mellitus without complications; Z79.4 Long term (current) use of insulin; F03.90 Unspecified dementia, unspecified severity, without behavioral disturbance, psychotic disturbance, mood disturbance, and anxiety; E78.5 Hyperlipidemia, unspecified; S42.302D Unspecified fracture of shaft of humerus, left arm, subsequent encounter for fracture with routine healing; R33.9 Retention of urine, unspecified; C18.9 Malignant neoplasm of colon, unspecified; C78.7 Secondary malignant neoplasm of liver and intrahepatic bile duct
CPT/HCPCS: 36415; 51702; 70450; 71010; 74020; 80048; 80053; 81001; 82150; 83690; 83735; 84100; 84145; 84443; 84484; 85025; 87086; 93005; 96372; 96374; 96376; 99285; G0378